=== PATIENT | female | born 1970 | race Caucasian/White ===

== ENCOUNTER 2017-03-16 19:34 | Emergency (ER) | payer SELFPAY ==
[2017-03-16] MEDS ORDERED: METHYLPREDNISOLONE INJ 125 MG/2 ML SDV IV ONE (19:38)
--- NOTE | 2017-03-16 19:40 | ER Document Report ---
ED Allergic Reaction - General Mode of Arrival: Medic Information source: Patient TRAVEL OUTSIDE OF THE [place] IN LAST 30 DAYS: No <MALLY BLEDSOE - Last Filed: 03/16/17 23:56> <BECKY DICKINSON - Last Filed: 03/17/17 00:05> - General Stated Complaint: POSSIBLE ALLERGIC REACTION Time Seen by Provider: 03/16/17 19:38 Notes: Patient is a 47-year-old female who presents to the emergency department today with complaints of an allergic reaction. Patient states she knows she is allergic to fire ants and there are bite ramirez on her feet. Patient complains of eye swelling, tongue swelling, wheezing, with difficulty breathing. Patient states she had an EpiPen with her however she did not administer it because it was and she is "afraid of needles". Patient did receive 0.3 of epinephrine prior to arrival by EMS. (MALLY BLEDSOE) - Related Data Allergies/Adverse Reactions: Penicillins Adverse Reaction (Verified 07/13/15 16:34) promethazine HCl [From Phenergan] Adverse Reaction (Verified 07/13/15 16:35) Nausea Past Medical History - General Information source: Patient - Social History Smoking Status: Never Smoker Cigarette use (# per day): No Frequency of alcohol use: None Drug Abuse: None Lives with: Family Family History: Reviewed & Not Pertinent Neurological Medical History: Reports: Hx Seizures Past Surgical History: Reports: Hx Tonsillectomy, Hx Tubal Ligation - Immunizations Hx Diphtheria, Pertussis, Tetanus Vaccination: No <MALLY BLEDSOE - Last Filed: 03/16/17 23:56> Review of Systems - Review of Systems Constitutional: See HPI, Other - allergic reaction EENT: See HPI, Other - tongue swelling, eye swelling Cardiovascular: No symptoms reported Respiratory: See HPI, Wheezing Gastrointestinal: No symptoms reported Genitourinary: No symptoms reported Female Genitourinary: No symptoms reported Musculoskeletal: No symptoms reported Skin: No symptoms reported Hematologic/Lymphatic: No symptoms reported Neurological/Psychological: No symptoms reported -: Yes All other systems reviewed and negative <MALLY BLEDSOE - Last Filed: 03/16/17 23:56> Physical Exam <MALLY BLEDSOE - Last Filed: 03/16/17 23:56> <BECKY DICKINSON - Last Filed: 03/17/17 00:05> - Vital signs Vitals: Resp Pulse Ox 15 100 03/16/17 19:46 03/16/17 19:46 - Notes Notes: Physical Exam: General: Alert, mild distress. HEENT: Normocephalic. Atraumatic. PERRL. Extraocular movements intact. Oropharynx clear. Neck: Supple. Non-tender. Respiratory: No respiratory distress. Clear and equal breath sounds bilaterally. Cardiovascular: Regular rate and rhythm. Abdominal: Normal Inspection. Non-tender. No distension. Normal Bowel Sounds. Back: Non-tender. No deformity or step off. Extremities: Moves all four extremities. Upper extremities: Normal inspection. Normal ROM. Lower extremities: Normal inspection. No edema. Normal ROM. Neurological: Normal cognition. AAOx4. Normal speech. Tremulous. Psychological: Normal affect. Normal Mood. Skin: Diffuse urticaria. (MALLY BLEDSOE) Course <MALLY BLEDSOE - Last Filed: 03/16/17 23:56> <BECKY DICKINSON - Last Filed: 03/17/17 00:05> - Re-evaluation Re-evalutation: 03/16/17 22:07 Patient is improved. Given Solu-Medrol. No further allergic reaction symptoms. Ambulated in the emergency department without tachycardia or hypoxia. Patient will be discharged home with prednisone, famotidine, and epinephrine as needed. Stable for discharge. Return if any worsening or concerning symptoms. (BECKY DICKINSON) - Vital Signs Vital signs: Temp Pulse Resp BP Pulse Ox 98.3 F 78 18 129/87 H 99 03/16/17 22:30 03/16/17 22:30 03/16/17 22:30 03/16/17 22:30 03/16/17 22:30 Critical Care Note - Critical Care Note Total time excluding time spent on procedures (mins): 15 - Evaluation and management of anaphylaxis, re-evaluations, counseling patient <BECKY DICKINSON - Last Filed: 03/17/17 00:05> Discharge <MALLY BLEDSOE - Last Filed: 03/16/17 23:56> <BECKY DICKINSON - Last Filed: 03/17/17 00:05> - Discharge Clinical Impression: Allergic reaction Qualifiers: Encounter type: initial encounter Qualified Code(s): T78.40XA - Allergy, unspecified, initial encounter Anaphylactic reaction Qualifiers: Encounter type: initial encounter Qualified Code(s): T78.2XXA - Anaphylactic shock, unspecified, initial encounter Condition: Stable Disposition: ADMITTED INPATIENT Instructions: Acute Allergic Reaction ([facility]), Swollen Insect Bite or Sting ([facility]) Additional Instructions: Please take Benadryl at night. Please take Claritin or Zyrtec in the morning. Please take famotidine once a day. Please take prednisone as prescribed. Please get a refill of epinephrine to carry with you. Prescriptions: Epinephrine [Adrenaclick] 0.3 mg IJ ONCE PRN #2 ml PRN Reason: Epinephrine [Epipen 2-Zachary] 0.3 mg IM ONCE #1 ml Famotidine [Pepcid 20 mg Tablet] 20 mg PO DAILY #14 tablet Prednisone 40 mg PO DAILY #6 tablet Forms: Return to Work Scribe Attestation: 03/17/17 00:05 I personally performed the services described in the documentation, reviewed and edited the documentation which was dictated to the scribe in my presence, and it accurately records my words and actions. (BECKY DICKINSON) Scribe Documentation - Scribe Written by Jaleesa:: Jaleesa Kearney, 03/16/20171 acting as scribe for :: Belia <MALLY BLEDSOE - Last Filed: 03/16/17 23:56>
[2017-03-16 22:29] VITALS: BP 129/87
== END 2017-03-16 22:25 | disposition home or self-care (01) ==
LOC: ER 19:34
DX: T78.2XXA Anaphylactic shock, unspecified, initial encounter (principal); L50.0 Allergic urticaria; R06.2 Wheezing; R22.0 Localized swelling, mass and lump, head; Z91.038 Other insect allergy status
CPT/HCPCS: 99285; 96374; J2930

== ENCOUNTER 2020-01-17 22:12 | Emergency (ER) | payer SELFPAY ==
[2020-01-17] MEDS ORDERED: ONDANSETRON 4 MG TAB.RAPDIS PO ONE (23:13)
[2020-01-17] MEDS ORDERED: AMOXICILLIN TR/POT CLAVULANATE 875-125 MG TAB PO ONE (23:13)
[2020-01-17] MEDS ORDERED: OXYCODONE-ACETAMINOPHEN 5-325 MG TABLET PO ONE (23:13)
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
[2020-01-18] MEDS ORDERED: BUPIVACAINE HCL 0.5 % INJ/PF 30 ML SDV INJ ONE (01:17)
[2020-01-18] MEDS ORDERED: LIDOCAINE 1% INJ-PF (10 MG/ML) 30 ML SDV INJ ONE (01:17)
--- NOTE | 2020-01-18 01:44 | RADIOLOGY REPORT (SQ) ---
EXAM DESCRIPTION: 3 views of the left first digit CLINICAL HISTORY: 49 years, Female, dog bite, avulsion wound COMPARISON: None. FINDINGS: There is a soft tissue laceration along the distal second phalanx. There is traumatic amputation of the distal second phalangeal tuft with a longitudinally oriented minimally displaced fracture line. The rest of the osseous structures are normal in appearance. There are no retained opaque foreign body. There is no focal soft tissue swelling. The metacarpal, and remaining phalangeal bones are normal in appearance. IMPRESSION: 1. Traumatic amputation of the distal second phalangeal tuft with soft tissue laceration. 2. No retained opaque foreign bodies.
[2020-01-18] MEDS ORDERED: ONDANSETRON ODT 4 MG TAB (6 TAB/ER DISP) PO PRN (02:20)
[2020-01-18] MEDS ORDERED: HYDROCODONE/ACETAMINOPHEN 5-325 MG (6 TAB/ER DISP) PO PRN (02:20)
[2020-01-18 03:11] VITALS: BP 142/82
== END 2020-01-18 03:10 | disposition home or self-care (01) ==
LOC: ER 22:12
DX: S61.251A Open bite of left index finger without damage to nail, initial encounter (principal); W54.0XXA Bitten by dog, initial encounter; Y93.K9 Activity, other involving animal care; F17.200 Nicotine dependence, unspecified, uncomplicated; R56.9 Unspecified convulsions; Z79.899 Other long term (current) drug therapy
CPT/HCPCS: 99283; 73140; 12002; J3490 ×3; S0119

== ENCOUNTER 2020-01-19 13:55 | Observation (INO) | payer BC ==
[2020-01-19] MEDS ORDERED: CLINDAMYCIN 600 MG/D5W RTU 600 MG/50 ML RTUPB IV ONE (14:33)
--- NOTE | 2020-01-19 14:35 | ER Document Report ---
ED Medical Screen (RME) - General Chief Complaint: Dog Bite Stated Complaint: BITE/RECHECK Time Seen by Provider: 01/19/20 14:21 Mode of Arrival: Ambulatory Information source: Patient Notes: 49-year-old female patient presenting to the emergency department with wound recheck for dog bite. Patient reports she was bitten by her dog a few days ago and was seen here in the emergency department. She states the pain and swelling and erythema are worsening. There is erythematous extending up to the dorsal surface of her hand. I have greeted and performed a rapid initial assessment of this patient. A comprehensive ED assessment and evaluation of the patient, analysis of test results and completion of the medical decision making process will be conducted by additional ED providers. I have specifically instructed the patient or family members with the patient to immediately return to any nursing staff should anything change in the patient's condition or with their chief complaint. TRAVEL OUTSIDE OF THE [place] IN LAST 30 DAYS: No - Related Data Allergies/Adverse Reactions: Penicillins Adverse Reaction (Verified 01/19/20 14:22) promethazine HCl [From Phenergan] Adverse Reaction (Verified 01/19/20 14:22) Nausea Past Medical History - Social History Chew tobacco use (# tins/day): No Frequency of alcohol use: None Drug Abuse: None Neurological Medical History: Reports: Hx Seizures Renal/ Medical History: Denies: Hx Peritoneal Dialysis Past Surgical History: Reports: Hx Tonsillectomy, Hx Tubal Ligation - Immunizations Immunizations up to date: Yes Hx Diphtheria, Pertussis, Tetanus Vaccination: Yes Physical Exam - Vital signs Vitals: Temp Pulse Resp BP Pulse Ox 98.6 F 105 H 20 188/116 H 98 01/19/20 14:01/19/20 14:01/19/20 14:01/19/20 14:01/19/20 14:01 Course - Vital Signs Vital signs: Temp Pulse Resp BP Pulse Ox 98.6 F 105 H 20 188/116 H 98 01/19/20 14:22 01/19/20 14:01/19/20 14:01/19/20 14:01 01/19/20 14:01
[2020-01-19 15:26] LABS: ABSOLUTE MONOCYTES (AUTO) 0.5 10^3/uL (0.1-1.4); ABSOLUTE NEUT (AUTO) 5.5 10^3/uL (1.7-8.2); BASOPHILS % (AUTO) 0.4 % (0-2); EOSINOPHILS % (AUTO) 0.6 % (0-6); HEMATOCRIT 38.7 % (36.0-47.0); HEMOGLOBIN 13.3 g/dL (12.0-15.5); LYMPHOCYTES % (AUTO) 24.8 % (13-45); MEAN CORPUSCULAR HEMOGLOBIN 29.2 pg (27.0-33.4); MEAN CORPUSCULAR HGB CONC 34.4 g/dL (32.0-36.0); MEAN CORPUSCULAR VOLUME 85 fl (80-97); MONOCYTES % (AUTO) 5.8 % (3-13); PLATELET COUNT 217 10^3/uL (150-450); RED BLOOD COUNT 4.57 10^6/uL (3.72-5.28); RED CELL DISTRIBUTION WIDTH 14.1 % (11.5-14.0); SEGMENTED NEUTROPHILS % (AUTO) 68.4 % (42-78); TOTAL CELLS COUNTED % (AUTO) 100 %; WHITE BLOOD COUNT 8.1 10^3/uL (4.0-10.5)
[2020-01-19 15:51] LABS: ALBUMIN 4.1 g/dL (3.5-5.0); ALKALINE PHOSPHATASE 47 U/L (38-126); ASPARTATE AMINO TRANSFERASE 37 U/L (14-36); BILIRUBIN,TOTAL 0.5 mg/dL (0.2-1.3); BLOOD UREA NITROGEN 11 mg/dL (7-20); C-REACTIVE PROTEIN 7.2 mg/L (<10.0); CALCIUM 9.2 mg/dL (8.4-10.2); CARBON DIOXIDE 27 mmol/L (22-30); GLUCOSE 94 mg/dL (75-110); POTASSIUM 4.1 mmol/L (3.6-5.0); TOTAL PROTEIN 6.4 g/dL (6.3-8.2)
[2020-01-19 15:54] LABS: ANION GAP 6 (5-19); CHLORIDE 104 mmol/L (98-107)
[2020-01-19 16:10] LABS: ERYTHROCYTE SEDIMENTATION RATE 9 mm/hr (0-30)
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
[2020-01-19] MEDS ORDERED: VANCOMYCIN HCL INJ 1000 MG VIAL IV ONE (16:29)
[2020-01-19] MEDS ORDERED: LORAZEPAM 1 MG TABLET PO PRN (17:12)
[2020-01-19] MEDS ORDERED: MORPHINE SULFATE 10 MG/ML INJ IV PRN (17:14)
[2020-01-19] MEDS ORDERED: ONDANSETRON 4 MG TAB.RAPDIS PO PRN (17:15)
[2020-01-19] MEDS ORDERED: VANCOMYCIN HCL 0 MG in DEXTROSE 5%-WATER 250 ML IV NR (17:15)
[2020-01-19] MEDS ORDERED: ACETAMINOPHEN 325 MG TABLET PO PRN (17:15)
[2020-01-19] MEDS ORDERED: MAG HYDROX/AL HYDROX/SIMETH SUSP 30 ML UDCUP PO PRN (17:15)
[2020-01-19] MEDS ORDERED: ONDANSETRON HCL INJ/PF 4 MG/2 ML SDV IV PRN (17:15)
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
[2020-01-19] MEDS: OXYBUTYNIN CHLORIDE 5 MG TABLET PO SCH (18:47)
[2020-01-19 18:56] LABS: INTERNATIONAL RATION (INR) 1.06; PROTHROMBIN TIME 13.8 SEC (11.4-15.4)
[2020-01-19] MEDS: OXYCODONE-ACETAMINOPHEN 5-325 MG TABLET PO PRN (21:45)
[2020-01-19] MEDS: LEVETIRACETAM 500 MG TABLET PO SCH (21:46)
[2020-01-19] MEDS: CLINDAMYCIN 600 MG/D5W RTU 600 MG/50 ML RTUPB IV SCH (21:46)
[2020-01-19] MEDS: DIAZEPAM 5 MG TABLET PO SCH (21:47)
[2020-01-19] MEDS: FAMOTIDINE 20 MG TABLET PO SCH (21:47)
[2020-01-20] MEDS: CLINDAMYCIN 600 MG/D5W RTU 600 MG/50 ML RTUPB IV SCH ×3 (05:52→21:51)
[2020-01-20] MEDS: OXYCODONE-ACETAMINOPHEN 5-325 MG TABLET PO PRN (09:59)
[2020-01-20] MEDS: LEVETIRACETAM 500 MG TABLET PO SCH ×2 (10:20→21:48)
[2020-01-20] MEDS: OXYBUTYNIN CHLORIDE 5 MG TABLET PO SCH ×2 (10:20→18:15)
[2020-01-20] MEDS: DOCUSATE SODIUM 100 MG CAPSULE PO SCH (10:20)
[2020-01-20] MEDS: ENOXAPARIN SODIUM INJ 40 MG/0.4 ML DISP.SYRIN SUBCUT SCH (10:21)
[2020-01-20] MEDS: FAMOTIDINE 20 MG TABLET PO SCH ×2 (10:21→21:48)
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
[2020-01-20] MEDS: VANCOMYCIN HCL 750 MG in DEXTROSE 5%-WATER 250 ML IV SCH ×2 (12:02→21:51)
--- NOTE | 2020-01-20 15:04 | PDOC PROGRESS REPORT ---
Subjective Progress Note for:: 01/20/20 Reason For Visit: DOG BITE LEFT HAND, ANXIETY,HISTORY OF BREAST 01/20/2020 Cellulitis left hand, dog bite left hand, anxiety, history of breast cancer, traumatic amputation distal phalanx second digit left hand, seizure disorder Physical Exam Vital Signs: Temp Pulse Resp BP Pulse Ox 98.5 F 76 16 127/72 H 98 01/20/20 12:00 01/20/20 12:00 01/20/20 12:00 01/20/20 12:00 01/20/20 12:00 Intake & Output 01/19/20 01/20/20 01/21/20 06:59 06:59 06:59 Intake Total 830 50 Balance 830 50 Weight 57.9 kg General appearance: PRESENT: mild distress - Distress is more emotional than physical this morning Musculoskeletal exam: PRESENT: deformity, full ROM, other - Significantly less redness to the dorsum of the left hand and the index finger, fact almost no redness at all. Definitely less edema to the left hand as well as left finger. Discussion with orthopedic surgeon reveals no limitation to range of motion no indication of flexor tenosynovitis. Neurological exam: PRESENT: alert, awake, oriented to person, oriented to place, oriented to time, oriented to situation, CN II-XII grossly intact. ABSENT: motor sensory deficit Psychiatric exam: PRESENT: agitated, other - Patient is expressing her displeasure with her care Results Laboratory Results: 01/19/20 14:58 01/19/20 14:58 01/19/20 01/19/20 14:58 14:58 WBC 8.1 RBC 4.57 Hgb 13.3 Hct 38.7 MCV 85 MCH 29.2 MCHC 34.4 RDW 14.1 H Plt Count 217 Seg Neutrophils % 68.4 Sodium 137.1 Potassium 4.1 Chloride 104 Carbon Dioxide 27 Anion Gap 6 BUN 11 Creatinine 0.69 Est GFR ( Amer) > 60 Glucose 94 Calcium 9.2 Total Bilirubin 0.5 AST 37 H Alkaline Phosphatase 47 C-Reactive Protein 7.2 Total Protein 6.4 Albumin 4.1 01/19/20 14:58 Creatine Kinase 64 Assessment and Plan - Diagnosis (1) Anxiety Is this a current diagnosis for this admission?: Yes (2) History of breast cancer Is this a current diagnosis for this admission?: Yes (3) Seizure disorder Is this a current diagnosis for this admission?: Yes (4) Cellulitis Qualifiers: Site of cellulitis: extremity Site of cellulitis of extremity: upper extremity Laterality: left Qualified Code(s): L03.114 - Cellulitis of left upper limb Is this a current diagnosis for this admission?: Yes (5) Dog bite Qualifiers: Encounter type: initial encounter Qualified Code(s): W54.0XXA - Bitten by dog, initial encounter Is this a current diagnosis for this admission?: Yes (6) Fingertip avulsion Qualifiers: Encounter type: initial encounter Qualified Code(s): S61.209A - Unspecified open wound of unspecified finger without damage to nail, initial encounter Is this a current diagnosis for this admission?: Yes (7) Injury of left index finger Qualifiers: Encounter type: initial encounter Qualified Code(s): S69.92XA - Unspecified injury of left wrist, hand and finger(s), initial encounter Is this a current diagnosis for this admission?: Yes - Plan Summary Summary: Patient will be admitted to the hospital for IV antibiotics, wound care every shift. Serial CBCs as well as blood cultures. Patient appears to be medically stable. Patient has been told of the seriousness of this type of injury. 01/20/2020 Temperature 97.7. Patient has been afebrile since admission Pulse between 68 and 71, blood pressure 133/79, O2 sat 99% on room air Per the chart and per nursing patient has refused all lab work from this morning including a CBC as well as a Keppra level. Patient did not feel that it was medically necessary. Patient refused the order for seizure precautions, she did not feel it was medically necessary. Patient refused to be n.p.o. after midnight and drank coffee this morning as she did not feel that it was medically necessary, and told nursing she was not going to have anything done to her finger or hand. This may stem from the fact that I asked patient which was her dominant hand and and explained that if further problems developed that required surgery it was much better for the patient for this to occur in her non-dominant hand. Patient informed me yesterday in the emergency room that "she was never going to have anything else cut off of her body and that she was going to leave the hospital with all of her body parts intact." Nursing staff spent a great deal of time trying to explain to the patient this morning medical necessity for having the studies done. I also went into the room with nursing marble supervisor and tried to explain the rationale behind labs and placing the patient on seizure precautions however patient disagreed with my medical opinion. Patient requested another hospitalist to be in charge of her care which I have no problem with. I have asked Dr. Ledezma to assume the patient's care along with the consulting orthopedic surgeon. The orthopedic surgeon and I discussed her hand and finger in detail in the hallway and he explained his examination that he performed on the finger. - Time Time Spent with patient: 25-34 minutes
[2020-01-20] MEDS: DIAZEPAM 5 MG TABLET PO SCH (21:52)
[2020-01-21] MEDS: OXYCODONE-ACETAMINOPHEN 5-325 MG TABLET PO PRN (01:09)
[2020-01-21] MEDS: CLINDAMYCIN 600 MG/D5W RTU 600 MG/50 ML RTUPB IV SCH (05:12)
[2020-01-21] MEDS: DOCUSATE SODIUM 100 MG CAPSULE PO SCH (11:03)
[2020-01-21] MEDS: LEVETIRACETAM 500 MG TABLET PO SCH (11:03)
[2020-01-21] MEDS: OXYBUTYNIN CHLORIDE 5 MG TABLET PO SCH (11:03)
[2020-01-21] MEDS: VANCOMYCIN HCL 750 MG in DEXTROSE 5%-WATER 250 ML IV SCH (11:04)
[2020-01-21] MEDS: ENOXAPARIN SODIUM INJ 40 MG/0.4 ML DISP.SYRIN SUBCUT SCH (11:04)
[2020-01-21] MEDS: FAMOTIDINE 20 MG TABLET PO SCH (11:04)
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
[2020-01-21 14:39] VITALS: BP 145/81
== END 2020-01-21 14:07 | disposition home or self-care (01) ==
LOC: ER 13:55 → EH 16:49 → INTOOBSV 16:49 → 4S 18:25
PROVIDERS: ADMIT Hospitalist; ATTEND Hospitalist
DX: L03.114 Cellulitis of left upper limb (principal); S61.251D Open bite of left index finger without damage to nail, subsequent encounter; W54.0XXD Bitten by dog, subsequent encounter; F41.1 Generalized anxiety disorder; G40.909 Epilepsy, unspecified, not intractable, without status epilepticus; Z88.0 Allergy status to penicillin; Z88.8 Allergy status to other drugs, medicaments and biological substances; Z79.899 Other long term (current) drug therapy; Z85.3 Personal history of malignant neoplasm of breast
CPT/HCPCS: 99284; 96365; 36415; 87040; 80177; 82550; 85025; 85652; 85610; 86140; 80053; G0378 ×4; J7060 ×2; J3370 ×3